=== PATIENT | female | born 1990 | race Caucasian/White ===

== ENCOUNTER → 2023-01-15 | Outpatient (CLI) | payer OTHER ==
--- NOTE | 2023-01-15 11:47 | Diagnostic Imaging Report ---
Indication: Routine screening. No prior mammograms are available for comparison. 2-D and 3-D bilateral screening mammography was performed with CAD. Both breasts are heterogeneously dense, limiting the sensitivity of mammography. No mass or malignant-appearing microcalcifications are seen. Axillae are unremarkable. IMPRESSION: BI-RADS Category 1 No mammographic features suspicious for malignancy are identified. ACR BI-RADS Category 1: Negative. Result letter will be mailed to the patient. Note: At least 10% of breast cancer is not imaged by mammography. Dictated by: Dictated on workstation # [id number]
== END ==
LOC: RAD 07:43
PROVIDERS: ATTEND Nurse Practitioner Family
DX: Z12.31 Encounter for screening mammogram for malignant neoplasm of breast (principal); Z80.3 Family history of malignant neoplasm of breast
CPT/HCPCS: 77063; 77067

== ENCOUNTER → 2023-06-22 | Outpatient (CLI) | payer OTHER ==
--- NOTE | 2023-06-22 17:31 | Diagnostic Imaging Report ---
INDICATION: Supervision of normal . Anatomy scan. TECHNIQUE: Multiple real-time grayscale images were obtained over the gravid uterus. COMPARISON: None FINDINGS: A single live intrauterine gestation is visualized and in transverse presentation. heart tones measure 142 bpm. The placenta is posterior and not low-lying. The PO is normal measuring 17.5 cm. The kidneys, bladder, stomach, four-chamber heart, three-vessel cord, spine, cord insertion, outflow tracts, upper and lower extremities, nose and lips are visualized and have a normal appearance. The ventricles/brain were not well seen due to position. The cervix is closed and measures 6.3 cm in length. Views of the adnexa are unremarkable. Biometrical measurements are as follows: Biparietal 4.88 cm, age 20 weeks 6 days. Head circumference 17.98 cm, age 20 weeks 3 days. Abdominal circumference 15.71 cm, age 21 weeks 0 days. Femur length 3.37 cm, age 20 weeks 4 days. Sonographic estimate age: 20 weeks 5 days. Sonographic estimated date of delivery: 11/07/2023. Estimated Weight: 371 gm (+/- 54 gm). LMP percentile: 69%. heart rate: 142 beats per minute. number: 1 of 1. IMPRESSION: 1. Single live intrauterine gestation in transverse position measuring 20 weeks 5 days with an estimated due date of 11/07/2023. These are within range of the clinical dates. 2. The ventricles and brain are not well seen due to position. The remainder of the anatomy is seen and has a normal appearance. Recommend follow-up as indicated. Dictated by: Dictated on workstation # [id number]
== END ==
LOC: RAD 14:23
PROVIDERS: ATTEND Nurse Practitioner Women's Health
DX: Z34.02 Encounter for supervision of normal first pregnancy, second trimester (principal); Z3A.20 20 weeks gestation of pregnancy
CPT/HCPCS: 76805